=== PATIENT | female | born 1990 | race Caucasian/White ===

== ENCOUNTER 2017-03-05 04:53 | Emergency (ER) | payer SELFPAY ==
[~2017-03-05] VITALS: Ht 175.3 cm; Wt 68.9 kg
[2017-03-05] MEDS ORDERED: IV NORMAL SALINE 1000 ML BAG IV ONE (05:15)
[2017-03-05] MEDS ORDERED: KETOROLAC TROMETHAMINE 30 MG INJ IVP ONE (05:15)
[2017-03-05] MEDS ORDERED: PANTOPRAZOLE SODIUM 40 MG VIAL IV ONE (05:15)
[2017-03-05] MEDS ORDERED: ONDANSETRON 4 MG/2 ML VIAL IV ONE (05:15)
[2017-03-05] MEDS ORDERED: PANTOPRAZOLE SODIUM 40 MG VIAL ONE (05:36)
[2017-03-05] MEDS ORDERED: ONDANSETRON 4 MG/2 ML VIAL ONE (05:36)
[2017-03-05] MEDS ORDERED: KETOROLAC TROMETHAMINE 30 MG INJ ONE (05:36)
--- NOTE | 2017-03-05 06:00 | NUR ---
PATIENT STATES "I FEEL ALOT BETTER NOW." PAIN IS 2/10. DENIES N/V
--- NOTE | 2017-03-05 06:25 | NUR ---
IV removed. Catheter intact and site benign. Pressure and 4x4 gauze applied to site. No bleeding noted.
[2017-03-05 06:30] VITALS: BP 128/75
--- NOTE | 2017-03-05 06:32 | NUR ---
Patient discharged to home in stable conditon WITH FRIEND TAKING PATIENT HOME. Written and verbal after care instructions given. Patient verbalizes understanding of instructions. WALKED OUT OF ER WITH NO DISTRESS NOTED
== END 2017-03-05 06:33 | disposition home or self-care (01) ==
LOC: ER 04:59
DX: N94.6 Dysmenorrhea, unspecified (principal)
CPT/HCPCS: 36415; 84703; 96361; 96374; 96375; 99284; A4663; C9113; J1885; J2405; J7030

== ENCOUNTER 2017-04-16 05:13 | Emergency (ER) | payer OTHER ==
[~2017-04-16] VITALS: Ht 175.3 cm; Wt 77.1 kg
[2017-04-16] MEDS ORDERED: LEVONOR-ETH ESTRAD 0.1-0.02 MG (05:33)
[2017-04-16] MEDS ORDERED: KETOROLAC TROMETHAMINE 15 MG INJ IV ONE (05:45)
[2017-04-16] MEDS ORDERED: METOCLOPRAMIDE HCL 10 MG/2 ML VIAL IV ONE (05:45)
[2017-04-16] MEDS ORDERED: IV NORMAL SALINE 1000 ML BAG IV ONE (05:45)
--- NOTE | 2017-04-16 05:54 | NUR ---
SALINE LOCK PLACED. LABS DRAWN/SENT/MEDS ADMINISTERED, 1 L0.9NS INFUSING.
[2017-04-16] MEDS ORDERED: KETOROLAC TROMETHAMINE 15 MG INJ ONE (05:56)
[2017-04-16] MEDS ORDERED: METOCLOPRAMIDE HCL 10 MG/2 ML VIAL ONE (05:56)
[2017-04-16 06:03] LABS: BASOPHILS % (AUTO) 0.3 % (0.0-2.0); EOSINOPHILS % (AUTO) 1.3 % (0.0-7.0); HEMOGLOBIN 12.5 G/DL (12.0-16.0); LYMPHOCYTES # (AUTO) 1.7 K/UL (0.8-4.8); LYMPHOCYTES % (AUTO) 44.2 % (20.5-51.5); MEAN CORPUSCULAR HEMOGLOBIN 28.8 UUG (27.0-31.0); MEAN CORPUSCULAR HGB CONC 33 g/dL (32.0-37.0); MEAN CORPUSCULAR VOLUME 87.2 FL (81.0-99.0); MONOCYTES # (AUTO) 0.4 K/UL (0.1-1.30); MONOCYTES % (AUTO) 11.5 % (0.0-11.0); NEUTROPHILS # (AUTO) 1.6 K/UL (1.8-8.9); NEUTROPHILS % (AUTO) 42.7 % (38.5-71.5); PLATELET COUNT (AUTO) 213 K/UL (150-450); RED BLOOD CELL COUNT(AUTO) 4.35 MIL/UL (4.2-5.4); WHITE BLOOD COUNT (AUTO) 3.7 K/UL (4.0-11.2)
[2017-04-16 06:13] LABS: CREATININE 0.8 mg/dL (0.6-1.3); POTASSIUM 3.6 mmol/L (3.5-5.1)
[2017-04-16 06:19] LABS: BILIRUBIN,DIRECT 0.1 mg/dL (0.0-0.2); BILIRUBIN,TOTAL 0.3 mg/dL (0.2-1.0); TOTAL PROTEIN, SERUM 7.8 g/dL (6.4-8.2)
--- NOTE | 2017-04-16 06:20 | NUR ---
[facility] ARRIVED.
[2017-04-16] MEDS ORDERED: HYDROMORPHONE 1 MG/1 ML DISP.SYRIN IV ONE (07:00)
[2017-04-16] MEDS ORDERED: ONDANSETRON IV *ER 4 MG/2 ML VIAL IV ONE (07:00)
[2017-04-16] MEDS ORDERED: HYDROMORPHONE 2 MG/1 ML DISP.SYRIN ONE (07:07)
[2017-04-16] MEDS ORDERED: ONDANSETRON 4 MG/2 ML VIAL ONE (07:07)
--- NOTE | 2017-04-16 07:09 | NUR ---
MSE COMPLETED. IV D/C'D INTACT, ACI/RX X2 GIVEN . PT GOT DRESSED AND AMBULATED W/O DIFF WITH SIG OTHER WHOM IS TO DRIVE
[2017-04-16 07:10] VITALS: BP 120/84
== END 2017-04-16 07:11 | disposition home or self-care (01) ==
LOC: ER 05:16
DX: N94.6 Dysmenorrhea, unspecified (principal); N92.6 Irregular menstruation, unspecified
CPT/HCPCS: 76856; 83690; 84703; 85025; A4663; J1170; J1885; J2405; J2765; J7030